=== PATIENT | female | born 1980 | race Two or more races ===

== ENCOUNTER 2019-07-28 06:11 | Emergency (ER) | payer BC ==
[~2019-07-28] VITALS: Ht 160 cm; Wt 68.0 kg
--- NOTE | 2019-07-28 06:15 | NUR ---
ED Nurse Note: [facility] pt took ecstasy and alcohol, pt is restless, obtunded. Friends at bedside, VSS, IV access in LAC
[2019-07-28] MEDS ORDERED: LORazepam Inj 2mg/ml 1ml IV ONE (06:30)
[2019-07-28 06:42] VITALS: BP 119/71
--- NOTE | 2019-07-28 06:52 | Emergency Room Report ---
History of Present Illness General Chief Complaint: Substance Abuse Source: Patient, Friend, EMS Present Illness HPI Is a 38-year-old female with no past medical history. She presents with chief complaint of substance abuse. Her friend called 911 because she was acting bizarrely. She was drinking tonight for [employer]. And try some neck to see. She was very agitated and just urine to space. Making weird noises. They called 911. Unable to get any other history from this patient because of her condition and intoxication. Allergies: Coded Allergies: No Known Allergies (Unverified , 07/28/19) Patient History Past Medical History: see triage record, old chart reviewed Past Surgical History: none Pertinent Family History: none Social History: Reports: alcohol use, drug use; Denies: smoking Now: No Immunizations: other Reviewed Nursing Documentation: PMH: Agreed; PSxH: Agreed Nursing Documentation-PMH Past Medical History: No Stated History Review of Systems Eye: Denies: eye pain, blurred vision ENT: Denies: ear pain, nose congestion, throat swelling Respiratory: Denies: cough, shortness of breath Cardiovascular: Denies: chest pain, palpitations Gastrointestinal: Denies: abdominal pain, diarrhea, nausea, vomiting Musculoskeletal: Denies: back pain, joint pain Skin: Denies: rash Neurological: Denies: headache, numbness Endocrine: Denies: increased thirst, increased urine Hematologic/Lymphatic: Denies: easy bruising All Other Systems: negative except mentioned in HPI Physical Exam Vital Signs Date Time Temp Pulse Resp B/P (MAP) Pulse Ox O2 Delivery O2 Flow Rate FiO2 07/28/19 06:08 98.6 116 18 119/71 (87) 100 Room Air Vitals with tachycardia Sp02 EP Interpretation: reviewed, normal General Appearance: well appearing, no apparent distress Head: normocephalic, atraumatic Eyes: bilateral eye PERRL, bilateral eye EOMI, bilateral eye other - Pupils 6 to 7 mm and reactive ENT: hearing grossly normal, normal pharynx Neck: full range of motion, supple, no meningismus Respiratory: chest non-tender, lungs clear, normal breath sounds Cardiovascular #1: regular rate, rhythm, no murmur Gastrointestinal: normal bowel sounds, non tender, no mass, no organomegaly, no bruit, non-distended Musculoskeletal: back normal, normal range of motion Psychiatric: other - Patient is grimacing and making noises and grunting. Medical Decision Making Diagnostic Impression: Primary Impression: Substance abuse Additional Impression: Alcohol intoxication Qualified Codes: F10.920 - Alcohol use, unspecified with intoxication, uncomplicated ER Course Patient with alcohol and drug abuse. She is calmer after Ativan. Will observe until clinical sobriety. Last Vital Signs Date Time Temp Pulse Resp B/P (MAP) Pulse Ox O2 Delivery O2 Flow Rate FiO2 07/28/19 06:42 116 18 Room Air 07/28/19 06:42 98.6 119/71 100 Status: improved Disposition: HOME, SELF-CARE Condition: Stable Referrals: NOT CHOSEN IPA/MD,REFERRING (PCP) Patient Instructions: Substance Use Disorder Additional Instructions: Abstain from drugs and alcohol. Follow-up with your doctor in 7 days. Return if worse. Curtis Cruz MD Jul 28, 2019 06:52
--- NOTE | 2019-07-28 07:11 | NUR ---
HAND-OFF: Report given to ANG Youssef.
[2019-07-28 09:00] VITALS: BP 111/78
[2019-07-28 10:55] VITALS: BP 116/96
--- NOTE | 2019-07-28 10:55 | NUR ---
ER DISCHARGE NOTE: Patient is cleared to be discharged per ERMD, pt is aox4, on room air, with stable vital signs. pt was given dc instructions, pt was able to verbalize understanding, pt id band and iv site removed without complications. pt is able to ambulate with steady gait. pt took all belongings.
== END 2019-07-28 10:55 | disposition home or self-care (01) ==
LOC: EDBD 06:11 → EMR 06:30
DX: F19.10 Other psychoactive substance abuse, uncomplicated (principal); F10.129 Alcohol abuse with intoxication, unspecified
CPT/HCPCS: 96361; 96374; 99284; J7030